=== PATIENT | female | born 1980 | race African-American/Black ===

== ENCOUNTER 2023-06-25 08:12 | Inpatient (IN) | payer MEDICAID, OTHER ==
[~2023-06-25] VITALS: Ht 160 cm; Wt 40.9 kg
[~2023-06-25 08:12] MED LIST: SERO400T OR
[2023-06-25 08:51] LABS: BASO % 0.2 % (0.0-1.0); HEMOGLOBIN 14.6 g/dl (12.0-15.5); MEAN CORPUSCULAR HEMOGLOBIN 29.4 pg (27.0-33.0); MEAN CORPUSCULAR VOLUME 86.7 fl (80.0-96.0); MONO # 0.7 10^3/uL (0.0-0.8); MONO % 3.2 % (2.0-8.0); NEUTROPHILS # 17.4 10^3/uL (1.5-8.5); NEUTROPHILS % 85.6 % (36.0-66.0); PLATELET COUNT, AUTOMATED 446 10^3/uL (150-450); RED BLOOD COUNT 4.96 10^6/uL (4.00-5.40); WHITE BLOOD COUNT 20.4 10^3/uL (4.0-10.0)
[2023-06-25 09:40] LABS: RSV AMPLIFICATION NEGATIVE (NEGATIVE)
[2023-06-25] MEDS: NS 1,000 ML IV SCH ×2 (09:45→19:20)
[2023-06-25] MEDS ORDERED: ISOVUE-370 76% 100ML VIAL As Ordered ONE (09:51)
[2023-06-25 10:17] LABS: AMPHETAMINES LEVEL URINE NEGATIVE (NEGATIVE); PHENCYCLIDINE URINE NEGATIVE (NEGATIVE)
[2023-06-25 10:18] LABS: BARBITURATES URINE NEGATIVE (NEGATIVE); BENZODIAZEPINES URINE NEGATIVE (NEGATIVE); CANNABINOIDS URINE NEGATIVE (NEGATIVE); COCAINE METABOLITE URINE NEGATIVE (NEGATIVE); METHADONE URINE NEGATIVE (NEGATIVE); OPIATES URINE NEGATIVE (NEGATIVE)
[2023-06-25] MEDS ORDERED: ONDANSETRON 4MG 2ML VIAL IV ONE (10:30)
[2023-06-25] MEDS ORDERED: MORPHINE 4 MG/ML 1ML VIAL IV ONE (10:30)
[2023-06-25 11:47] LABS: HCG, SERUM QUALITATIVE NEGATIVE (NEGATIVE)
[2023-06-25 12:54] LABS: ETHYL ALCOHOL (ETHANOL) < 0.003 % (0.000-0.010)
[2023-06-25 12:56] LABS: SALICYLATE LEVEL < 3.0 MG/DL (<30); THYROID STIMULATING HORMONE 0.314 uIU/ML (0.55-4.78)
[2023-06-25 13:04] LABS: ALBUMIN 3.8 G/DL (3.2-5.2); ALKALINE PHOSPHATASE 73 U/L (46-116); ALT/SGPT 34 U/L (7.0-40); AST/SGOT 13 U/L (<34); BILIRUBIN,DIRECT 0.2 MG/DL (<0.4); BILIRUBIN,TOTAL 0.5 MG/DL (0.3-1.2); BLOOD UREA NITROGEN 7 MG/DL (9-23); CHLORIDE LEVEL 101 MMOL/L (98-107); CPK CREATINE PHOSPHOKINASE 194 U/L (34-145); GLOMERULAR FILTRATION RATE > 60.0 (>58); GLUCOSE, FASTING 115 MG/DL (60-100); POTASSIUM SERUM 3.8 MMOL/L (3.5-5.1); SODIUM LEVEL 134 MMOL/L (136-145)
[2023-06-25 13:10] LABS: ACETAMINOPHEN LEVEL < 2.0 UG/ML (10.0-20.0)
[2023-06-25] MEDS ORDERED: MED REC IN PROGRESS XX SCH (13:20)
[2023-06-25 13:50] LABS: CARBON DIOXIDE LEVEL 23 MMOL/L (20-31)
[2023-06-25] MEDS ORDERED: HOME MED LIST COMPLETE! XX SCH (14:00)
[2023-06-25] MEDS ORDERED: KETOROLAC 30 MG/ML 1ML VIAL IV ONE (14:20)
[2023-06-25] MEDS ORDERED: CHLORTHALIDONE 12.5MG PER 1/2 TABLET PO ONE (14:20)
[2023-06-25] MEDS: MORPHINE 2 MG/ML 1ML VIAL IV ONE ×2 (16:12→16:38)
[2023-06-25] MEDS ORDERED: fentaNYL 100 MCG/2 ML INJECTION IV ONE (17:25)
[2023-06-25 18:47] LABS: CK-MB VALUE MASS 1.5 NG/ML (<3.6)
[2023-06-25 18:50] LABS: MB/CK RELATIVE INDEX 0.75 (< OR =4)
[2023-06-25] MEDS: METOPROLOL 5 MG/5 ML VIAL IV PRN ×3 (20:06→20:32)
[2023-06-25] MEDS ORDERED: hydrALAZINE 20MG/ML 1ML VIAL IV PRN (21:30)
[2023-06-25] MEDS ORDERED: MAALOX 30 ML SUSP *UDC PO PRN (21:30)
[2023-06-25] MEDS ORDERED: MOM 30ML SUSPENSION UDC PO PRN (21:30)
[2023-06-25] MEDS ORDERED: PANTOPRAZOLE 40MG VIAL IV ONE (22:00)
[2023-06-25] MEDS ORDERED: hydrALAZINE 20MG/ML 1ML VIAL IV ONE (22:00)
[2023-06-26] MEDS: KETOROLAC 30 MG/ML 1ML VIAL IV PRN ×3 (03:12→20:59)
[2023-06-26] MEDS: NS 1,000 ML IV SCH (05:09)
[2023-06-26] MEDS: ACETAMINOPHEN TAB 650MG DOSE (2X325MG) PO PRN ×2 (06:29→12:08)
[2023-06-26 06:50] LABS: HEMOGLOBIN A1c 4.7 % (4.0-6.0)
[2023-06-26 06:57] LABS: HEMATOCRIT 51.1 % (36.0-47.0); MEAN CORPUSCULAR HEMOGLOBIN 28.5 pg (27.0-33.0); MEAN CORPUSCULAR HGB CONC 34.2 g/dl (32.0-36.5); MEAN CORPUSCULAR VOLUME 83.4 fl (80.0-96.0); RED BLOOD COUNT 6.13 10^6/uL (4.00-5.40); WHITE BLOOD COUNT 16.7 10^3/uL (4.0-10.0)
[2023-06-26 07:01] LABS: HEMOGLOBIN 17.5 g/dl (12.0-15.5)
[2023-06-26 07:02] LABS: PLATELET COUNT, AUTOMATED 578 10^3/uL (150-450)
[2023-06-26 07:03] LABS: FREE T4 1.27 NG/DL (0.89-1.76)
[2023-06-26 07:08] LABS: ALKALINE PHOSPHATASE 85 U/L (46-116); ALT/SGPT 36 U/L (7.0-40); AST/SGOT 15 U/L (<34); BILIRUBIN,TOTAL 0.7 MG/DL (0.3-1.2); BLOOD UREA NITROGEN 13 MG/DL (9-23); CALCIUM LEVEL 9.5 MG/DL (8.5-10.1); CARBON DIOXIDE LEVEL 25 MMOL/L (20-31); CHLORIDE LEVEL 95 MMOL/L (98-107); CREATININE FOR GFR 0.76 MG/DL (0.55-1.30); GLOMERULAR FILTRATION RATE > 60.0 (>58); GLUCOSE, FASTING 126 MG/DL (60-100); SODIUM LEVEL 132 MMOL/L (136-145); TOTAL PROTEIN 7.7 G/DL (5.7-8.2)
[2023-06-26] MEDS: PANTOPRAZOLE 40MG TAB (PROTONIX) PO SCH ×2 (09:31→20:41)
[2023-06-26] MEDS: ENOXAPARIN 30MG/0.3ML SYRINGE (J1650 PER 10MG) SC SCH (09:31)
[2023-06-26] MEDS: SUCRALFATE SUSP 1GM/10ML UD PO SCH ×4 (09:31→20:41)
[2023-06-26] MEDS: OLANZapine ORAL DISINTEGRATING TAB 5MG PO PRN (12:07)
[2023-06-26] MEDS: SENOKOT S TAB PO SCH ×2 (13:17→20:41)
[2023-06-26 14:30] VITALS: BP 127/86; TEMP 98.2; O2SAT 98
[2023-06-26] MEDS ORDERED: DICYCLOMINE INJ 20MG/2ML IM ONE (15:55)
[2023-06-26] MEDS: GABAPENTIN 100 MG CAP PO SCH ×2 (16:25→20:41)
[2023-06-26 18:55] VITALS: BP 140/90
[2023-06-26 20:05] VITALS: BP 148/88; TEMP 99; O2SAT 97
[2023-06-26 20:45] VITALS: BP 154/94
[2023-06-27 06:27] LABS: BASO # 0.1 10^3/uL (0.0-0.2); BASO % 0.5 % (0.0-1.0); EOS % 0.3 % (0.0-3.0); LYMPH # 3.7 10^3/uL (1.5-5.0); LYMPH % 26.5 % (24.0-44.0); MEAN CORPUSCULAR HEMOGLOBIN 28.6 pg (27.0-33.0); MEAN CORPUSCULAR HGB CONC 34.7 g/dl (32.0-36.5); MEAN CORPUSCULAR VOLUME 82.4 fl (80.0-96.0); MONO # 1.3 10^3/uL (0.0-0.8); MONO % 9.4 % (2.0-8.0); NEUTROPHILS # 8.6 10^3/uL (1.5-8.5); NEUTROPHILS % 62.4 % (36.0-66.0); PLATELET COUNT, AUTOMATED 541 10^3/uL (150-450); RED BLOOD COUNT 5.95 10^6/uL (4.00-5.40); WHITE BLOOD COUNT 13.8 10^3/uL (4.0-10.0)
[2023-06-27 06:34] VITALS: BP 142/92; TEMP 98.2; O2SAT 98
[2023-06-27 06:56] LABS: BLOOD UREA NITROGEN 25 MG/DL (9-23); CALCIUM LEVEL 9.3 MG/DL (8.5-10.1); CARBON DIOXIDE LEVEL 26 MMOL/L (20-31); CHLORIDE LEVEL 94 MMOL/L (98-107); CREATININE FOR GFR 0.79 MG/DL (0.55-1.30); GLOMERULAR FILTRATION RATE > 60.0 (>58); GLUCOSE, FASTING 106 MG/DL (60-100); MAGNESIUM LEVEL 2.1 MG/DL (1.8-2.4); PHOSPHORUS LEVEL 5.1 MG/DL (2.5-4.9); POTASSIUM SERUM 3.9 MMOL/L (3.5-5.1); SODIUM LEVEL 132 MMOL/L (136-145)
[2023-06-27] MEDS: SUCRALFATE SUSP 1GM/10ML UD PO SCH ×4 (07:30→21:02)
[2023-06-27] MEDS: GABAPENTIN 100 MG CAP PO SCH ×3 (09:00→21:02)
[2023-06-27] MEDS: SENOKOT S TAB PO SCH ×2 (09:00→21:00)
[2023-06-27] MEDS: ENOXAPARIN 30MG/0.3ML SYRINGE (J1650 PER 10MG) SC SCH (09:00)
[2023-06-27] MEDS: PANTOPRAZOLE 40MG TAB (PROTONIX) PO SCH ×2 (10:04→21:02)
[2023-06-27 14:00] VITALS: TEMP 97.9; O2SAT 93
[2023-06-27 16:09] VITALS: BP 127/80
[2023-06-27 20:00] VITALS: BP 113/83; TEMP 98.1; O2SAT 98
[2023-06-27 21:03] VITALS: BP 113/83
[2023-06-27] MEDS: OLANZapine ORAL DISINTEGRATING TAB 5MG PO PRN (21:03)
[2023-06-27] MEDS: KETOROLAC 30 MG/ML 1ML VIAL IV PRN (21:03)
[2023-06-27] MEDS: ACETAMINOPHEN TAB 650MG DOSE (2X325MG) PO PRN (21:08)
[2023-06-28 06:00] VITALS: BP 104/61; TEMP 98.1; O2SAT 99
[2023-06-28 06:13] LABS: BASO % 0.3 % (0.0-1.0); EOS # 0.1 10^3/uL (0.0-0.5); EOS % 0.7 % (0.0-3.0); HEMATOCRIT 45.3 % (36.0-47.0); HEMOGLOBIN 15.9 g/dl (12.0-15.5); LYMPH # 3.7 10^3/uL (1.5-5.0); LYMPH % 30.2 % (24.0-44.0); MEAN CORPUSCULAR HEMOGLOBIN 29.6 pg (27.0-33.0); MEAN CORPUSCULAR HGB CONC 35.1 g/dl (32.0-36.5); MEAN CORPUSCULAR VOLUME 84.4 fl (80.0-96.0); MONO # 1.2 10^3/uL (0.0-0.8); MONO % 9.4 % (2.0-8.0); NEUTROPHILS # 7.1 10^3/uL (1.5-8.5); NEUTROPHILS % 58.6 % (36.0-66.0); PLATELET COUNT, AUTOMATED 489 10^3/uL (150-450); RED BLOOD COUNT 5.37 10^6/uL (4.00-5.40); WHITE BLOOD COUNT 12.2 10^3/uL (4.0-10.0)
[2023-06-28 06:28] LABS: BLOOD UREA NITROGEN 36 MG/DL (9-23); CALCIUM LEVEL 9.2 MG/DL (8.5-10.1); CARBON DIOXIDE LEVEL 31 MMOL/L (20-31); CHLORIDE LEVEL 96 MMOL/L (98-107); CREATININE FOR GFR 0.95 MG/DL (0.55-1.30); GLOMERULAR FILTRATION RATE > 60.0 (>58); GLUCOSE, FASTING 102 MG/DL (60-100); MAGNESIUM LEVEL 2.5 MG/DL (1.8-2.4); PHOSPHORUS LEVEL 4.1 MG/DL (2.5-4.9); POTASSIUM SERUM 3.8 MMOL/L (3.5-5.1); SODIUM LEVEL 135 MMOL/L (136-145)
[2023-06-28] MEDS ORDERED: AMLO1TAB25 PO (06:52)
[2023-06-28] MEDS ORDERED: PANT40TA29 PO (06:52)
[2023-06-28] MEDS ORDERED: SENN-52 PO (06:52)
[2023-06-28 07:30] VITALS: BP 86/60; TEMP 98.1; O2SAT 96
[2023-06-28] MEDS ORDERED: NS 500 ML IV ONE (07:55)
[2023-06-28] MEDS ORDERED: NORV5TAB PO (07:56)
[2023-06-28] MEDS: PANTOPRAZOLE 40MG TAB (PROTONIX) PO SCH (08:20)
[2023-06-28] MEDS: ENOXAPARIN 30MG/0.3ML SYRINGE (J1650 PER 10MG) SC SCH (08:20)
[2023-06-28] MEDS: SUCRALFATE SUSP 1GM/10ML UD PO SCH (08:20)
[2023-06-28] MEDS: SENOKOT S TAB PO SCH (08:30)
[2023-06-28 09:46] VITALS: BP 93/65
== END 2023-06-28 12:27 | disposition home or self-care (01) | DRG 199 ==
LOC: EDBD 08:12 → M ED 08:12 → M ED INP 21:29 → ENRESERV 06-26 13:50 → M MSPAV 06-26 14:23
PROVIDERS: ADMIT Family Medicine; ATTEND Internal Medicine Nephrology
DX: I16.0 Hypertensive urgency (principal); E43 Unspecified severe protein-calorie malnutrition; F20.9 Schizophrenia, unspecified; D72.829 Elevated white blood cell count, unspecified; E03.9 Hypothyroidism, unspecified; F19.10 Other psychoactive substance abuse, uncomplicated; F32.9 Major depressive disorder, single episode, unspecified; K21.9 Gastro-esophageal reflux disease without esophagitis; N83.209 Unspecified ovarian cyst, unspecified side; R00.0 Tachycardia, unspecified; R10.9 Unspecified abdominal pain; R11.10 Vomiting, unspecified; R19.7 Diarrhea, unspecified; R51.9 Headache, unspecified; R73.9 Hyperglycemia, unspecified; Z59.00 Homelessness unspecified; Z68.1 Body mass index [BMI] 19.9 or less, adult; Z72.0 Tobacco use; Z94.5 Skin transplant status; I10 Essential (primary) hypertension